=== PATIENT | female | born 1945 | race Caucasian/White ===

== ENCOUNTER 2018-05-24 13:32 | Inpatient (IN) | payer MEDICARE, OTHER ==
[~2018-05-24] VITALS: Ht 167.6 cm; Wt 60.3 kg
--- NOTE | 2018-05-24 16:38 | NUR ---
PT ARRIVED TO UNIT TO ROOM 2226, ORINETATED TO ROOM CL IN REACH
[2018-05-24] MEDS ORDERED: FUROSEMIDE40 MG PO (16:42)
[2018-05-24] MEDS ORDERED: GEMFIBROZIL600 MG PO (16:43)
[2018-05-24] MEDS ORDERED: SYNTHROID50 MCG PO (16:43)
[2018-05-24] MEDS ORDERED: COZAAR50 MG PO (16:44)
[2018-05-24] MEDS ORDERED: LOPRESSOR25 MG PO (16:46)
[2018-05-24] MEDS ORDERED: OMEPRAZOLE20 M1 PO (16:46)
[2018-05-24] MEDS ORDERED: PRAVACHOL40 MG PO (16:47)
[2018-05-24] MEDS ORDERED: ALDACTONE25 MG PO (16:48)
[2018-05-24] MEDS ORDERED: COUMADIN5 MG PO (16:51)
[2018-05-24] MEDS ORDERED: FLUTICASONE PRO16 GM NASAL (16:53)
[2018-05-24 17:38] LABS: BASOPHILS 0.5 % (0-2); EOSINOPHILS 0.7 % (0-7); HEMATOCRIT 24.5 % (36.0-48.0); IMMATURE GRANULOCYTES 0.2 % (0-5); LYMPHOCYTES 19.8 % (15-50); MCH 18.8 pg (26.0-34.0); MCHC 29.4 g/dL (31.0-37.0); MCV 64.1 fL (80.0-100.0); MONOCYTES 11.3 % (2-11); NEUTROPHILS 67.5 % (40-80); PLATELET COUNT 383 10x3/uL (130-400); RBC 3.82 10x6/uL (4.00-5.40); RDW 22.4 % (11.5-14.5); WBC 9.5 10x3/uL (4.8-10.8)
[2018-05-24 17:40] LABS: HEMOGLOBIN 7.2 g/dL (12-16)
[2018-05-24 18:05] LABS: % SATURATION 83 % (15-55); IRON 472 ug/dl (35-150); TOTAL IRON BIND CAPACITY 564 ug/dl (260-445); UNSAT IRON BIND CAPACITY 92 ug/dl (150-375)
[2018-05-24 18:11] LABS: ALBUMIN 3.4 g/dL (3.4-5.0); BILIRUBIN - TOTAL 1.85 mg/dL (0.2-1.3)
[2018-05-24 18:12] LABS: CALCIUM 8.7 mg/dL (8.5-10.1); CREATININE - SERUM 0.9 mg/dL (0.6-1.3); POTASSIUM - SERUM 4.2 mmol/L (3.5-5.1); PROTEIN - SERUM 7.5 g/dL (6.4-8.2)
[2018-05-24 18:13] LABS: ANION GAP 15.2 mmol/L (8-16)
[2018-05-24 19:25] LABS: APPEARANCE CLEAR (CLEAR); BILIRUBIN NEGATIVE (NEGATIVE); COLOR YELLOW (YELLOW); GLUCOSE NEGATIVE (NEGATIVE); KETONE NEGATIVE (NEGATIVE); NITRITE NEGATIVE (NEGATIVE); PROTEIN NEGATIVE (NEGATIVE); UROBILINOGEN NORMAL (NORMAL)
[2018-05-24 21:20] VITALS: BP 99/61
--- NOTE | 2018-05-24 21:20 | NUR ---
PT ALERT & ORIENTED. VITAL SIGNS STABLE. UNIT PRBC'S INFUSION STARTED. PT TOLERATING WELL. NO REACTION. COMPLETE ASSESSMENT PER FLOW-SHEET. FAMILY VISITING AT BEDSIDE. WILL CONTINUE TO MONITOR.
[2018-05-24 21:35] VITALS: BP 102/64
[2018-05-24] MEDS ORDERED: CITRACAL + D E1 EACH PO (21:48)
[2018-05-24 21:50] VITALS: BP 100/59
[2018-05-24 22:05] VITALS: BP 108/57
[2018-05-25] VITALS (7 sets, daily range): BP systolic 100–110; BP diastolic 54–70
[2018-05-25 05:32] LABS: BASOPHILS 0.8 % (0-2); EOSINOPHILS 2.3 % (0-7); HEMATOCRIT 27.2 % (36.0-48.0); HEMOGLOBIN 8.1 g/dL (12-16); IMMATURE GRANULOCYTES 0.3 % (0-5); LYMPHOCYTES 30.2 % (15-50); MCHC 29.8 g/dL (31.0-37.0); MEAN PLATELET VOLUME 9.1 fL (7.4-10.4); MONOCYTES 12.6 % (2-11); NEUTROPHILS 53.8 % (40-80); PLATELET COUNT 335 10x3/uL (130-400); RBC 4.06 10x6/uL (4.00-5.40); RDW 24.2 % (11.5-14.5); WBC 7.4 10x3/uL (4.8-10.8)
[2018-05-25 05:48] LABS: ANION GAP 16.2 mmol/L (8-16); CALCIUM 8.7 mg/dL (8.5-10.1); CARBON DIOXIDE 23.5 mmol/L (21.0-32.0); CREATININE - SERUM 0.9 mg/dL (0.6-1.3); POTASSIUM - SERUM 3.7 mmol/L (3.5-5.1)
--- NOTE | 2018-05-25 18:45 | NUR ---
I have reviewed this patient and I concur with the Shift Assessment completed by the Licensed Practical Nurse today this shift.
--- NOTE | 2018-05-25 21:18 | NUR ---
PT ALERT & ORIENTED. VISITORS WENT HOME. GAVE SCHEDULED MEDS. NO OTHER NEEDS. RIGHT CHEST DRESSING C/D/I. COMPLETE ASSESSMENT PER FLOW-SHEET. REMINDED PT TO BE NPO AFTER MIDNIGHT. WILL CONTINUE TO MONITOR.
[2018-05-26 04:00] VITALS: BP 105/58
[2018-05-26 07:02] LABS: ANION GAP 14.3 mmol/L (8-16); CALCIUM 9.3 mg/dL (8.5-10.1); CARBON DIOXIDE 26.6 mmol/L (21.0-32.0); CREATININE - SERUM 0.9 mg/dL (0.6-1.3); POTASSIUM - SERUM 3.9 mmol/L (3.5-5.1)
[2018-05-26 07:26] LABS: INR 1.74 (0.85-1.17); PROTIME 19.8 SECONDS (11.6-15.0)
[2018-05-26 07:56] LABS: EOSINOPHILS 4.5 % (0-7); HEMATOCRIT 29.4 % (36.0-48.0); HEMOGLOBIN 8.7 g/dL (12-16); IMMATURE GRANULOCYTES 0.1 % (0-5); LYMPHOCYTES 21.8 % (15-50); MCH 20.2 pg (26.0-34.0); MCHC 29.6 g/dL (31.0-37.0); MCV 68.4 fL (80.0-100.0); MEAN PLATELET VOLUME 9.5 fL (7.4-10.4); MONOCYTES 13.3 % (2-11); NEUTROPHILS 59.3 % (40-80); PLATELET COUNT 343 10x3/uL (130-400); RDW 25.6 % (11.5-14.5); WBC 7.8 10x3/uL (4.8-10.8)
[2018-05-26 09:31] VITALS: BP 109/48
[2018-05-26 13:00] VITALS: BP 105/63
[2018-05-26 15:13] VITALS: Ht 167.6 cm; Wt 60.3 kg
[2018-05-26 15:35] VITALS: BP 117/67
[2018-05-26 20:00] VITALS: BP 103/62
[2018-05-27 04:00] VITALS: BP 103/65
[2018-05-27 05:41] LABS: INR 1.58 (0.85-1.17); PROTIME 18.2 SECONDS (11.6-15.0)
[2018-05-27 05:56] LABS: ALBUMIN 3.1 g/dL (3.4-5.0); ANION GAP 14.1 mmol/L (8-16); BILIRUBIN - TOTAL 1.09 mg/dL (0.2-1.3); CALCIUM 8.7 mg/dL (8.5-10.1); CARBON DIOXIDE 24.8 mmol/L (21.0-32.0); POTASSIUM - SERUM 3.9 mmol/L (3.5-5.1); PROTEIN - SERUM 7.2 g/dL (6.4-8.2)
[2018-05-27 05:57] LABS: % SATURATION 31 % (15-55); IRON 154 ug/dl (35-150); TOTAL IRON BIND CAPACITY 483 ug/dl (260-445); UNSAT IRON BIND CAPACITY 329 ug/dl (150-375)
[2018-05-27 06:02] LABS: BASOPHILS 1.3 % (0-2); EOSINOPHILS 4.4 % (0-7); HEMATOCRIT 29.9 % (36.0-48.0); HEMOGLOBIN 8.7 g/dL (12-16); IMMATURE GRANULOCYTES 0.3 % (0-5); LYMPHOCYTES 23.2 % (15-50); MCH 20.3 pg (26.0-34.0); MCHC 29.1 g/dL (31.0-37.0); MCV 69.9 fL (80.0-100.0); MEAN PLATELET VOLUME 9.3 fL (7.4-10.4); MONOCYTES 11.3 % (2-11); NEUTROPHILS 59.5 % (40-80); PLATELET COUNT 315 10x3/uL (130-400); RBC 4.28 10x6/uL (4.00-5.40); RDW 26.6 % (11.5-14.5)
[2018-05-27 07:31] LABS: CA125 20.8 U/mL (0.0-38.1); CEA 2.3 ng/mL (0.0-4.7)
[2018-05-27 09:21] LABS: FOLATE (FOLIC ACID) - SERUM 5.4 ng/mL (>3.0)
[2018-05-27 09:36] VITALS: BP 110/70
[2018-05-27 10:41] LABS: HEMATOCRIT 29.2 % (36.0-48.0); HEMOGLOBIN 8.6 g/dL (12-16)
[2018-05-27 14:16] VITALS: BP 122/75
--- NOTE | 2018-05-27 17:25 | OP ---
PATIENT NAME: POOJA ABARCA MEDICAL RECORD: [id number] :43 LOCATION:D.[facility] ADMISSION DATE:05/25/18 SURGEON: EMMETT SALDAÑA MD DATE OF OPERATION: 05/26/2018 PREOPERATIVE DIAGNOSIS: Chest wall mass. POSTOPERATIVE DIAGNOSIS: Chest wall mass, which measures 7.2 cm in cephalad caudad dimension and 6.0 cm in the lateral medial dimension. This overlies the medial aspect of the clavicle. PROCEDURE: Incisional biopsy of chest wall mass. This was a pie type of biopsy. The dimensions were 2.5 cm x 3.5 cm. SURGEON: Emmett Saldaña MD ABRASIVE WORKER: None. BLOOD LOSS: Minimal. ANESTHESIA: Local with sedation. COMPLICATIONS: None. The rest of the procedure was explained to the patient. This was not intended to be a curative procedure, but instead to give us a tissue diagnosis. OPERATIVE COURSE: The patient was conveyed to the operating room yesterday electively on 05/26/2018. The right chest was sterilely prepped and draped. The lateral aspect of the malignancy was infiltrated with a local anesthetic. At the 9 o'clock position, a wedge-shaped incisional biopsy was obtained that started out on a fairly normal skin and extended to the middle of the lesion which undoubtedly is a malignancy. I then excised this sharply from underlying connective tissue. There was no attempt to close the incisional biopsy site. I then bisected the portion of the tissue that had been biopsied and half was sent to pathology as a permanent section and the other was sent to pathology as a frozen section. 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 Hemostasis was achieved with the electrocautery as well as with a powdered hemostatic agent. A sterile dressing was applied. The patient was then conveyed back to the recovery room. TRANSINT:[id number] Voice Confirmation ID: [id number] DOCUMENT ID: [id number] EMMETT SALDAÑA MD at 1729 CC: [id number] DICTATION DATE: 05/27/18 1206 OIL FIELD RIG BUILDER: 05/27/18 1329 [place] [address]
[2018-05-27 18:04] VITALS: BP 124/76
[2018-05-27 20:00] VITALS: BP 121/80
[2018-05-27 22:55] LABS: HEMATOCRIT 27.4 % (36.0-48.0); HEMOGLOBIN 8.1 g/dL (12-16)
[2018-05-28] VITALS: BP 104/67
[2018-05-28 04:00] VITALS: BP 115/79
[2018-05-28 07:10] LABS: BASOPHILS 0.8 % (0-2); EOSINOPHILS 2.3 % (0-7); HEMOGLOBIN 8.2 g/dL (12-16); IMMATURE GRANULOCYTES 0.2 % (0-5); MCH 20.7 pg (26.0-34.0); MCHC 29.3 g/dL (31.0-37.0); MCV 70.5 fL (80.0-100.0); MEAN PLATELET VOLUME 9.4 fL (7.4-10.4); MONOCYTES 9.9 % (2-11); NEUTROPHILS 63.8 % (40-80); PLATELET COUNT 297 10x3/uL (130-400); RBC 3.97 10x6/uL (4.00-5.40); WBC 6.5 10x3/uL (4.8-10.8)
[2018-05-28 07:27] LABS: INR 1.47 (0.85-1.17); PROTIME 17.3 SECONDS (11.6-15.0)
[2018-05-28 07:30] LABS: FOLATE (FOLIC ACID) - SERUM 5.6 ng/mL (>3.0)
[2018-05-28 07:35] LABS: ANION GAP 14.8 mmol/L (8-16); CALCIUM 8.6 mg/dL (8.5-10.1); CARBON DIOXIDE 23.6 mmol/L (21.0-32.0); CREATININE - SERUM 0.8 mg/dL (0.6-1.3); POTASSIUM - SERUM 3.4 mmol/L (3.5-5.1)
[2018-05-28 11:10] LABS: HEMATOCRIT 29.2 % (36.0-48.0); HEMOGLOBIN 8.5 g/dL (12-16)
--- NOTE | 2018-05-28 13:27 | NUR ---
I AGREE WITH GAS PLUMBING INSPECTOR ASSESSMENT.
[2018-05-28 13:38] VITALS: BP 114/72
--- NOTE | 2018-05-28 13:57 | NUR ---
PT RESTING COMFORTABLY IN BED, NO COMPLAINTS VOICED. EGD THIS AM. TOLERATED WELL, RETURNED TO REGULAR DIET. TOLERATING WELL. L FA SLIGHTY RED/TENDER FROM PREVIOUS IV, IV CURRENTLY IN L HAND, PATENT NON-TENDER, NS @ 10 GOING. CALL LIGHT, BEDSIDE TABLE IN REACH. FAMILY AT BEDSIDE. BED IN LOWEST POSITION. CONTACT PRECAUTIONS MAINTATINED. WILL CONTINUE TO MONITOR.
--- NOTE | 2018-05-28 15:10 | MORECARE ---
CASE MANAGEMENT DISCHARGE SUMMARY PATIENT: POOJA ABARCA UNIT: [id number] ADM DATE: 05/25/18 AGE: 72 : 44 SEX: F ROOM/BED: D.2226 AUTHOR: AALIYAH BAKER PHYSICIAN: REFERRING PHYSICIAN: EUNICE BRISENO MD DATE OF SERVICE: 05/28/18 Discharge Plan Patient Name: POOJA ABARCA Facility: [facility]:[place] : 1945 Planned Disposition: Home Anticipated Discharge Date: 05/29/18 Discharge Date: Expected LOS: 4 Initial Reviewer: [email or web address] Initial Review Date: 05/28/2018 Generated: 05/28/18 4:10 pm Patient Name: POOJA ABARCA Page [id number] at 1510 All edits/amendments must be made on the electronic document DICTATION DATE: 05/28/18 1510 INSPECTOR BARREL: MOISÉS 05/28/18 1510 RPT#: [id number] DC DATE: STATUS: ADM IN [facility] [address] [place] [address] END OF REPORT
--- NOTE | 2018-05-28 15:20 | MORECARE ---
CASE MANAGEMENT DISCHARGE SUMMARY PATIENT: POOJA ABARCA UNIT: [id number] ADM DATE: 05/25/18 AGE: 72 : 44 SEX: F ROOM/BED: D.2226 AUTHOR: OLIVIA,DOC PHYSICIAN: REFERRING PHYSICIAN: EUNICE BRISENO MD DATE OF SERVICE: 05/28/18 Discharge Plan Patient Name: POOJA ABARCA Facility: [facility]:[place] : 1945 Planned Disposition: Home Anticipated Discharge Date: 05/29/18 Discharge Date: Expected LOS: 4 Initial Reviewer: [email or web address] Initial Review Date: 05/28/2018 Generated: 05/28/18 4:20 pm Comments DCP- Discharge Planning Updated by [email or web address]: Sonali Kaur on 05/28/18 2:[address] Patient Name: POOJA ABARCA Admission Status: Elective Accout number: [id number] Admission Date: 05-25-2018 : 1945 Admission Diagnosis: Attending: EUNICE BRISENO Current LOS: 3 Anticipated DC Date: 05-29-2018 Planned Disposition: Home Primary Insurance: MEDICARE A & B Discharge Planning Comments: CM met with patient to complete initial dc planning assessment. CM educated patient on the CM role and verbal consent given by patient to complete assessment. Patient lives alone. At discharge patient plans to return and feels this is a safe discharge. CM discussed availability of home health, rehab services, and medical equipment. Patient denied known discharge needs at this time. States she will not need home health unless her biopsy is MRSA and then may need home health for wound care. I gave her a list of home health services and she will ask family and friends on which home health services she should pick if needed. CM will continue to follow and will assist as needed with dc plans/needs. Clerical Order Filler: Sonali Kaur DCPIA - Discharge Planning Initial Assessment Updated by [email or web address]: Sonali Kaur on 05/28/18 3:11 pm * Is the patient Alert and Oriented? Yes * How many steps to enter\exit or inside your home? 1/0 * PCP Dr. Jaya Paniting * Pharmacy [facility] * Preadmission Environment Home Alone * ADLs Independent * Equipment None * List name and contact numbers for known caregivers / representatives who currently or will assist patient after discharge: Dee Zepeda - DTR -[phone] Deandre Abarca - son - [phone] Kaylah Peterson - Grand daughter - [phone] * Verbal permission to speak to the caregivers and representatives has been obtained from the patient. Yes * Community resources currently utilized None * Additional services required to return to the preadmission environment? No * Can the patient safely return to the preadmission environment? Yes * Has this patient been hospitalized within the prior 30 days at any hospital? No Last DP export: 05/28/18 2:10 p Patient Name: POOJA ABARCA Page [id number] at 1520 All edits/amendments must be made on the electronic document DICTATION DATE: 05/28/181519 CLIMATOLOGIST: MOISÉS 05/28/18 1520 RPT#: [id number] DC DATE: STATUS: ADM IN [facility] [address] [place] [address] END OF REPORT
[2018-05-28 16:28] VITALS: BP 115/70
[2018-05-28 20:00] VITALS: BP 99/72
--- NOTE | 2018-05-28 20:00 | NUR ---
ASSESSMENT PER FLOWSHEET. DRESSING TO BOIL ON NECK AREA C/D/I. PT IN CONTACT ISOLATION FOR MRSA. IV PATENT LEFT HAND OF NS AT 10CC'S/HR SITE CLEAR. TELM. SHOWS SR WITH HR 92 NO DISTRESS.JOANNA MAT ON SR UP CALL LIGHT WITHIN REACH.
--- NOTE | 2018-05-28 21:00 | NUR ---
MEDS GIVEN PER MAR. FAMILY MEMBERS AT BEDSIDE.
[2018-05-28 23:12] LABS: HEMATOCRIT 29.1 % (36.0-48.0); HEMOGLOBIN 8.5 g/dL (12-16)
--- NOTE | 2018-05-28 23:30 | NUR ---
RESULTS OF H&H ARE 8.5/29.1. NO BLOOD NEEDED AT THIS TIME PER S/S.
--- NOTE | 2018-05-29 00:47 | NUR ---
EYES CLOSED RESPIRATIONS WITH EASE AND UNLABORED.
[2018-05-29 04:00] VITALS: BP 110/62
--- NOTE | 2018-05-29 04:00 | NUR ---
RESTING QUIETLY IV SALINE LOCKED.
[2018-05-29 04:17] LABS: BASOPHILS 0.6 % (0-2); EOSINOPHILS 3.9 % (0-7); HEMATOCRIT 30.4 % (36.0-48.0); HEMOGLOBIN 8.9 g/dL (12-16); IMMATURE GRANULOCYTES 0.3 % (0-5); LYMPHOCYTES 25.5 % (15-50); MCHC 29.3 g/dL (31.0-37.0); MCV 71.9 fL (80.0-100.0); NEUTROPHILS 58.7 % (40-80); PLATELET COUNT 265 10x3/uL (130-400); RBC 4.23 10x6/uL (4.00-5.40); RDW 28.7 % (11.5-14.5)
[2018-05-29 04:35] LABS: ANION GAP 13.1 mmol/L (8-16); CALCIUM 8.7 mg/dL (8.5-10.1); CARBON DIOXIDE 25.5 mmol/L (21.0-32.0); CREATININE - SERUM 0.8 mg/dL (0.6-1.3); POTASSIUM - SERUM 3.6 mmol/L (3.5-5.1)
[2018-05-29 10:11] VITALS: BP 109/68
[2018-05-29 11:57] LABS: HEMATOCRIT 29.3 % (36.0-48.0); HEMOGLOBIN 8.7 g/dL (12-16)
--- NOTE | 2018-05-29 12:18 | NUR ---
NUTRITION F//U CHART REVIEWED, PT VISIT. TOLERATING REG DIET WITH 75% INTAKE RECENT MEALS. NOW OUT OF ISOLATION. WILL CONTINUE TO PROVIDE DIET, MONITOR PO INTAKE. RD FOLLOWING
[2018-05-29] MEDS ORDERED: DOXYCYCLINE HY100 M2 PO (12:28)
--- NOTE | 2018-05-29 12:56 | MORECARE ---
CASE MANAGEMENT DISCHARGE SUMMARY PATIENT: POOJA ABARCA UNIT: [id number] ADM DATE: 05/25/18 AGE: 72 : 44 SEX: F ROOM/BED: D.2226 AUTHOR: OLIVIADOC PHYSICIAN: REFERRING PHYSICIAN: EUNICE BRISENO MD DATE OF SERVICE: 05/29/18 Discharge Plan Patient Name: POOJA ABARCA Facility: [facility]:[place] : 1945 Planned Disposition: Home Anticipated Discharge Date: 05/29/18 Discharge Date: Expected LOS: 4 Initial Reviewer: [email or web address] Initial Review Date: 05/28/2018 Generated: 05/29/18 1:56 pm Comments DCP- Discharge Planning Updated by [email or web address]: Sonali Gaxiolamalu on 05/29/18 11:[address] Patient Name: POOJA ABARCA Encounter No: [id number] : 1945 Primary Insurance: MEDICARE A & B Anticipated DC Date: 05-29-2018 Planned Disposition: Home External Planned Provider: : DCP follow-up note: Patient and family in agreement with discharge plan. No changes to plan. She declines need for home health. Case management will follow and assist as needed. Sonali Minormalu DCP- Discharge Planning Updated by [email or web address]: Sonali Gaxiolamalu on 05/28/18 2:[address] Patient Name: POOJA ABARCA Admission Status: Elective Accout number: [id number] Admission Date: 05-25-2018 : 1945 Admission Diagnosis: Attending: EUNICE BRISENO Current LOS: 3 Anticipated DC Date: 05-29-2018 Planned Disposition: Home Primary Insurance: MEDICARE A & B Discharge Planning Comments: CM met with patient to complete initial dc planning assessment. CM educated patient on the CM role and verbal consent given by patient to complete assessment. Patient lives alone. At discharge patient plans to return and feels this is a safe discharge. CM discussed availability of home health, rehab services, and medical equipment. Patient denied known discharge needs at this time. States she will not need home health unless her biopsy is MRSA and then may need home health for wound care. I gave her a list of home health services and she will ask family and friends on which home health services she should pick if needed. CM will continue to follow and will assist as needed with dc plans/needs. Payroll Tax Specialist: Sonali Gaxiolamalu DCPIA - Discharge Planning Initial Assessment Updated by [id number]: Sonali Natasha on 05/28/18 3:11 pm * Is the patient Alert and Oriented? Yes * How many steps to enter\exit or inside your home? 1/0 * PCP Dr. Jaya Painting * Pharmacy [facility] * Preadmission Environment Home Alone * ADLs Independent * Equipment None * List name and contact numbers for known caregivers / representatives who currently or will assist patient after discharge: Dee Zepeda - DTR -[phone] Deandre Abarca - son - [phone] Kaylah Nieves Grand daughter - [phone] * Verbal permission to speak to the caregivers and representatives has been obtained from the patient. Yes * Community resources currently utilized None * Additional services required to return to the preadmission environment? No * Can the patient safely return to the preadmission environment? Yes * Has this patient been hospitalized within the prior 30 days at any hospital? No Coverage Notice Reviewer: [email or web address] - Sonali Natasha Notice Issued Date-Time: 05/29/2018 12:50 Notice Type: IM Discharge Notice Notice Delivered To: Family Member Relationship to Patient: Self Aircraft Design Engineer Name: Delivery Method: HAND - Hand Delivered Lizbeth Days: Prior Verbal Notification: Recipient Understood Notice: Yes Recipient Signature: Yes Med Rec Note Co-signed by Attending: Coverage Notice Comment: IMM explained, signed, given, copy placed in MR Last DP export: 05/28/18 2:20 p Patient Name: POOJA ABARCA Page [id number] at 1256 All edits/amendments must be made on the electronic document DICTATION DATE: 05/29/18 1255 PRODUCTION LINE SOLDERER: MOISÉS 05/29/18 1255 RPT#: [id number] DC DATE: STATUS: ADM IN [facility] [address] [place] [address] END OF REPORT
[2018-05-29 13:37] VITALS: BP 109/66
--- NOTE | 2018-05-30 10:36 | MORECARE ---
CASE MANAGEMENT DISCHARGE SUMMARY PATIENT: POOJA ABARCA UNIT: [id number] ADM DATE: 05/25/18 AGE: 72 : 44 SEX: F ROOM/BED: D.2226 AUTHOR: OLIVIADOC PHYSICIAN: REFERRING PHYSICIAN: EUNICE BRISENO MD DATE OF SERVICE: 05/30/18 Discharge Plan Patient Name: POOJA ABARCA Facility: [facility]:[place] : 1945 Planned Disposition: Home Anticipated Discharge Date: 05/29/18 Discharge Date: 05/29/2018 Expected LOS: 4 Initial Reviewer: [id number] Initial Review Date: 05/28/2018 Generated: 05/30/18 11:36 am Comments DCP- Discharge Planning Updated by [id number]: Sonali Kaur on 05/29/18 11:[address] Patient Name: POOJA ABARCA Encounter No: [id number] : 1945 Primary Insurance: MEDICARE A & B Anticipated DC Date: 05-29-2018 Planned Disposition: Home External Planned Provider: : DCP follow-up note: Patient and family in agreement with discharge plan. No changes to plan. She declines need for home health. Case management will follow and assist as needed. Sonali Minormalu DCP- Discharge Planning Updated by [id number]: Sonali Kaur on 05/28/18 2:[address] Patient Name: POOJA ABARCA Admission Status: Elective Accout number: [id number] Admission Date: 05-25-2018 : 1945 Admission Diagnosis: Attending: EUNICE BRISENO Current LOS: 3 Anticipated DC Date: 05-29-2018 Planned Disposition: Home Primary Insurance: MEDICARE A & B Discharge Planning Comments: CM met with patient to complete initial dc planning assessment. CM educated patient on the CM role and verbal consent given by patient to complete assessment. Patient lives alone. At discharge patient plans to return and feels this is a safe discharge. CM discussed availability of home health, rehab services, and medical equipment. Patient denied known discharge needs at this time. States she will not need home health unless her biopsy is MRSA and then may need home health for wound care. I gave her a list of home health services and she will ask family and friends on which home health services she should pick if needed. CM will continue to follow and will assist as needed with dc plans/needs. Flute Grinder: Sonali Natasha DCPIA - Discharge Planning Initial Assessment Updated by [email or web address]: Sonali Kaur on 05/28/18 3:11 pm * Is the patient Alert and Oriented? Yes * How many steps to enter\exit or inside your home? 1/0 * PCP Dr. Jaya Painting * Pharmacy [facility] * Preadmission Environment Home Alone * ADLs Independent * Equipment None * List name and contact numbers for known caregivers / representatives who currently or will assist patient after discharge: Dee Zepeda - DTR -[phone] Deandre Abarca - son - [phone] Kaylah Peterson - Grand daughter - [phone] * Verbal permission to speak to the caregivers and representatives has been obtained from the patient. Yes * Community resources currently utilized None * Additional services required to return to the preadmission environment? No * Can the patient safely return to the preadmission environment? Yes * Has this patient been hospitalized within the prior 30 days at any hospital? No Coverage Notice Reviewer: [id number] - Sonali Natasha Notice Issued Date-Time: 05/29/2018 12:50 Notice Type: IM Discharge Notice Notice Delivered To: Family Member Relationship to Patient: Self Cdl B Driver Name: Delivery Method: HAND - Hand Delivered Lizbeth Days: Prior Verbal Notification: Recipient Understood Notice: Yes Recipient Signature: Yes Med Rec Note Co-signed by Attending: Coverage Notice Comment: IMM explained, signed, given, copy placed in MR Last DP export: 05/29/18 11:56 a Patient Name: POOJA ABARCA Page [id number] at 1036 All edits/amendments must be made on the electronic document DICTATION DATE: 05/30/18 1036 REHABILITATION NURSE: MOISÉS 05/30/18 1036 RPT#: [id number] DC DATE:05/29/18 STATUS: DIS IN [facility] [address] [place] [address] END OF REPORT
--- NOTE | 2018-05-30 10:47 | MORECARE ---
CASE MANAGEMENT DISCHARGE SUMMARY PATIENT: POOJA ABARCA UNIT: [id number] ADM DATE: 05/25/18 AGE: 72 : 44 SEX: F ROOM/BED: D.2226 AUTHOR: OLIVIADOC PHYSICIAN: REFERRING PHYSICIAN: EUNICE BRISENO MD DATE OF SERVICE: 05/30/18 Discharge Plan Patient Name: POOJA ABARCA Facility: [facility]:[place] : 1945 Planned Disposition: Home Anticipated Discharge Date: 05/29/18 Discharge Date: 05/29/2018 Expected LOS: 4 Initial Reviewer: [email or web address] Initial Review Date: 05/28/2018 Generated: 05/30/18 11:46 am Comments DCP- Discharge Planning Updated by [email or web address]: Sonali Kaur on 05/29/18 11:[address] Patient Name: POOJA ABARCA Encounter No: [id number] : 1945 Primary Insurance: MEDICARE A & B Anticipated DC Date: 05-29-2018 Planned Disposition: Home External Planned Provider: : DCP follow-up note: Patient and family in agreement with discharge plan. No changes to plan. She declines need for home health. Case management will follow and assist as needed. Sonali Minormalu DCP- Discharge Planning Updated by [email or web address]: Sonali Kaur on 05/28/18 2:[address] Patient Name: POOJA ABARCA Admission Status: Elective Accout number: [id number] Admission Date: 05-25-2018 : 1945 Admission Diagnosis: Attending: EUNICE BRISENO Current LOS: 3 Anticipated DC Date: 05-29-2018 Planned Disposition: Home Primary Insurance: MEDICARE A & B Discharge Planning Comments: CM met with patient to complete initial dc planning assessment. CM educated patient on the CM role and verbal consent given by patient to complete assessment. Patient lives alone. At discharge patient plans to return and feels this is a safe discharge. CM discussed availability of home health, rehab services, and medical equipment. Patient denied known discharge needs at this time. States she will not need home health unless her biopsy is MRSA and then may need home health for wound care. I gave her a list of home health services and she will ask family and friends on which home health services she should pick if needed. CM will continue to follow and will assist as needed with dc plans/needs. Corporate Meeting Planner: Sonali Natasha DCPIA - Discharge Planning Initial Assessment Updated by [email or web address]: Sonali Kaur on 05/28/18 3:11 pm * Is the patient Alert and Oriented? Yes * How many steps to enter\exit or inside your home? 1/0 * PCP Dr. Jaya Painting * Pharmacy [facility] * Preadmission Environment Home Alone * ADLs Independent * Equipment None * List name and contact numbers for known caregivers / representatives who currently or will assist patient after discharge: Dee Zepeda - DTR -[phone] Deandre Abarca - son - [phone] Kaylah Peterson - Grand daughter - [phone] * Verbal permission to speak to the caregivers and representatives has been obtained from the patient. Yes * Community resources currently utilized None * Additional services required to return to the preadmission environment? No * Can the patient safely return to the preadmission environment? Yes * Has this patient been hospitalized within the prior 30 days at any hospital? No Coverage Notice Reviewer: [email or web address] - Sonali Natasha Notice Issued Date-Time: 05/29/2018 12:50 Notice Type: IM Discharge Notice Notice Delivered To: Family Member Relationship to Patient: Self Production Manager Name: Delivery Method: HAND - Hand Delivered Lizbeth Days: Prior Verbal Notification: Recipient Understood Notice: Yes Recipient Signature: Yes Med Rec Note Co-signed by Attending: Coverage Notice Comment: IMM explained, signed, given, copy placed in MR Last DP export: 05/29/18 11:56 a Patient Name: POOJA ABARCA Page [phone] at 1047 All edits/amendments must be made on the electronic document DICTATION DATE: 05/30/18 1046 OPHTHALMIC AIDE: MOISÉS 05/30/18 1046 RPT#: [id number] DC DATE:05/29/18 STATUS: DIS IN [address] [place] [address] END OF REPORT
[2018-06-01 19:07] LABS: AEROBE ID Final report (())
== END 2018-05-29 15:55 | disposition home or self-care (01) | DRG 607 ==
LOC: D.MS 13:32 → OBSVTIME 16:11 → D.MS 16:11
PROVIDERS: Emergency Medicine; Internal Medicine Gastroenterology; Internal Medicine Hematology & Oncology; Surgery; ADMIT Internal Medicine Nephrology; ATTEND Internal Medicine Nephrology
PROC: 0JB60ZX Excision of Chest Subcutaneous Tissue and Fascia, Open Approach, Diagnostic (ICD-10-PCS; 2018-05-26)
PROC: 0DBP8ZZ Excision of Rectum, Via Natural or Artificial Opening Endoscopic (ICD-10-PCS; 2018-05-28)
PROC: 0DB68ZX Excision of Stomach, Via Natural or Artificial Opening Endoscopic, Diagnostic (ICD-10-PCS; principal; 2018-05-28 07:00)
DX: C44.529 Squamous cell carcinoma of skin of other part of trunk (principal); R78.81 Bacteremia; K62.1 Rectal polyp; K20.9 Esophagitis, unspecified; K29.70 Gastritis, unspecified, without bleeding; B95.8 Unspecified staphylococcus as the cause of diseases classified elsewhere; D64.9 Anemia, unspecified; I48.91 Unspecified atrial fibrillation; I10 Essential (primary) hypertension; E03.9 Hypothyroidism, unspecified

== ENCOUNTER → 2019-04-03 10:00 | Outpatient (CLI) | payer MEDICARE, OTHER ==
[2018-05-26 15:13] VITALS: BMI 21.4
[~2019-04-03 10:00] MED LIST: ALDACTONE25 MG PO; CITRACAL + D E1 EACH PO; COUMADIN5 MG PO; COZAAR50 MG PO; DOXYCYCLINE HY100 M2 PO; FLUTICASONE PRO16 GM NASAL; FUROSEMIDE40 MG PO; GEMFIBROZIL600 MG PO; LOPRESSOR25 MG PO; OMEPRAZOLE20 M1 PO; PRAVACHOL40 MG PO; SYNTHROID50 MCG PO
== END | disposition home or self-care (01) ==
LOC: D.MAMMO 10:00
PROVIDERS: ATTEND Emergency Medicine
DX: Z12.31 Encounter for screening mammogram for malignant neoplasm of breast (principal)

== ENCOUNTER 2019-05-20 09:00 | Outpatient (CLI) | payer MEDICARE, OTHER ==
[2018-05-26 15:13] VITALS: BMI 21.4
== END 2019-05-20 10:00 | disposition home or self-care (01) ==
LOC: D.MAMMO 09:00
PROVIDERS: ATTEND Emergency Medicine
DX: R92.8 Other abnormal and inconclusive findings on diagnostic imaging of breast (principal)

== ENCOUNTER 2020-07-18 11:15 | Outpatient (CLI) | payer MEDICARE, OTHER ==
[2018-05-26 15:13] VITALS: BMI 21.4
== END 2020-07-18 23:59 | disposition home or self-care (01) ==
LOC: D.MAMMO 11:15
PROVIDERS: ATTEND Emergency Medicine
DX: Z12.31 Encounter for screening mammogram for malignant neoplasm of breast (principal)